=== PATIENT | male | born 1990 | race Caucasian/White ===

== ENCOUNTER 2022-01-20 15:51 | Emergency (ER) | payer MEDICAID ==
[~2022-01-20] VITALS: Ht 185.4 cm; Wt 116.6 kg
[2022-01-20 16:17] VITALS: BP 135/92
--- NOTE | 2022-01-20 17:25 | NUR ---
LAB AT BEDSIDE
--- NOTE | 2022-01-20 17:31 | NUR ---
PT TAKEN TO CT VIA WHEELCHAIR
[2022-01-20 17:37] LABS: BASOPHILS # (AUTO) 0.1 K/uL (0.00-0.22); BASOPHILS % (AUTO) 0.7 % (0.0-2.0); EOSINOPHILS # (AUTO) 0.4 K/uL (0-0.4); EOSINOPHILS % (AUTO) 4.7 % (0.0-4.0); HEMATOCRIT 52.1 % (36-52); HEMOGLOBIN 17.8 g/dL (12.0-18.0); MEAN CORPUSCULAR HEMOGLOBIN 30 pg (27-31); MEAN CORPUSCULAR HGB CONC 34 g/dL (33-37); MONOCYTES # (AUTO) 0.7 K/uL (0.8-1.0); MONOCYTES % (AUTO) 7.7 % (1.7-9.3); NEUTROPHILS # (AUTO) 5.1 K/uL (1.8-7.7); NEUTROPHILS % (AUTO) 54.9 % (42.2-75.2); PLATELET COUNT (AUTO) 242 K/uL (140-450); RED BLOOD CELL COUNT(AUTO) 5.92 MIL/uL (4.20-6.10); WHITE BLOOD COUNT (AUTO) 9.2 K/uL (4.8-10.8)
--- NOTE | 2022-01-20 17:40 | NUR ---
PT RETURNED FROM CT VIA WHEELCHAIR
[2022-01-20 17:49] LABS: ALBUMIN 3.8 g/dL (3.4-5.0); ANION GAP 10.4 (8-16); CARBON DIOXIDE 29.2 mmol/L (21-32); CREATININE 1.1 mg/dL (0.6-1.3); POTASSIUM 4.6 mmol/L (3.5-5.1); TOTAL BILIRUBIN 0.4 mg/dL (0.0-1.0)
[2022-01-20] MEDS ORDERED: NAPR-54 PO (18:19)
[2022-01-20] MEDS ORDERED: DIAZ5TAB6 PO (18:19)
--- NOTE | 2022-01-20 18:35 | NUR ---
Patient discharged with v/s stable. Written and verbal after care instructions FOR GENERAL HEADACHE given and explained. Patient alert, oriented and verbalized understanding of instructions. Ambulatory with steady gait. All questions addressed prior to discharge. ID band removed. Patient advised to follow up with PMD. Rx of DIAZEPAM AND NAPROXEN given. Opportunity to ask questions provided and answered.
--- NOTE | 2022-01-20 18:36 | NUR ---
The patient's care was reviewed and supervised by Kaitlynn Bass RN.
== END 2022-01-20 18:35 | disposition home or self-care (01) ==
LOC: MED 15:51
DX: R51.9 Headache, unspecified (principal); R53.83 Other fatigue; R20.2 Paresthesia of skin; F12.90 Cannabis use, unspecified, uncomplicated; Z90.49 Acquired absence of other specified parts of digestive tract; Z79.899 Other long term (current) drug therapy; Z79.1 Long term (current) use of non-steroidal anti-inflammatories (NSAID)
CPT/HCPCS: 36415; 70450; 71045; 80053; 85025; 99285

== ENCOUNTER 2023-08-18 13:39 | Emergency (ER) | payer MEDICAID ==
[~2023-08-18] VITALS: Ht 185.4 cm; Wt 111.1 kg
[~2023-08-18 13:39] MED LIST: DIAZ5TAB6 PO; NAPR-54 PO
[2023-08-18 14:27] VITALS: BP 139/81; PULSE 96; RESP 18; TEMP 98.5; O2SAT 97
[2023-08-18] MEDS: ACETAMINOPHEN 325 MG TAB PO ONE (16:25)
[2023-08-18 16:42] LABS: BASOPHILS # (AUTO) 0.1 K/uL (0.00-0.22); BASOPHILS % (AUTO) 0.6 % (0.0-2.0); EOSINOPHILS # (AUTO) 0.4 K/uL (0-0.4); EOSINOPHILS % (AUTO) 4.1 % (0.0-4.0); HEMATOCRIT 53.6 % (36-52); HEMOGLOBIN 18.4 g/dL (12.0-18.0); LYMPHOCYTES # (AUTO) 2.8 K/uL (2.0-11.5); MEAN CORPUSCULAR HEMOGLOBIN 30 pg (27-31); MEAN CORPUSCULAR HGB CONC 34 g/dL (33-37); MEAN CORPUSCULAR VOLUME 88.4 fL (80-94); MONOCYTES # (AUTO) 0.8 K/uL (0.8-1.0); NEUTROPHILS # (AUTO) 4.8 K/uL (1.8-7.7); NEUTROPHILS % (AUTO) 54.3 % (42.2-75.2); PLATELET COUNT (AUTO) 231 K/uL (140-450); RED BLOOD CELL COUNT(AUTO) 6.07 MIL/uL (4.20-6.10); RED CELL DISTRIBUTION WIDTH 13.2 % (11.6-13.7); WHITE BLOOD COUNT (AUTO) 8.8 K/uL (4.8-10.8)
[2023-08-18 16:51] LABS: ANION GAP 11.8 (8-16); CALCIUM 9.9 mg/dL (8.5-10.1); CARBON DIOXIDE 30.9 mmol/L (21-32); CREATININE 1.1 mg/dL (0.6-1.3); POTASSIUM 4.7 mmol/L (3.5-5.1)
[2023-08-18 17:04] LABS: ALANINE AMINOTRANSFERASE 66 U/L (12-78); ALKALINE PHOSPHATASE 59 U/L (50-136); ASPARTATE AMINOTRANSFERASE 32 U/L (15-37); BILIRUBIN,DIRECT 0.2 mg/dL (0.0-0.3); TOTAL BILIRUBIN 0.9 mg/dL (0.0-1.0); TOTAL PROTEIN, SERUM 7.8 g/dL (6.4-8.2)
[2023-08-18 17:06] LABS: FREE T4 (FREE THYROXINE) 1.05 ng/dL (0.76-1.46); THYROID STIMULATING HORMONE 1.69 uIU/mL (0.34-3.74)
[2023-08-18] MEDS ORDERED: KETOROLAC 30 MG/ML VIAL ONE (17:41)
[2023-08-18] MEDS ORDERED: ACETAMINOPHEN 325 MG TAB ONE (17:41)
[2023-08-18] MEDS: KETOROLAC 30 MG/ML VIAL IM ONE (17:43)
[2023-08-18] MEDS ORDERED: IBUP-2213 PO (18:20)
[2023-08-18 18:29] VITALS: BP 139/81; PULSE 96; RESP 18; TEMP 98.5; O2SAT 97
== END 2023-08-18 18:29 | disposition home or self-care (01) ==
LOC: MED 13:39
DX: R51.9 Headache, unspecified (principal); R07.9 Chest pain, unspecified; R53.1 Weakness; R42 Dizziness and giddiness; Z79.899 Other long term (current) drug therapy; Z79.1 Long term (current) use of non-steroidal anti-inflammatories (NSAID)
CPT/HCPCS: 36415; 71045; 80048; 80076; 84439; 84443; 84484; 85025; 93005; 96372; 99285; J1885; Q0092

== ENCOUNTER 2024-02-28 17:30 | Emergency (ER) | payer MEDICAID ==
[~2024-02-28] VITALS: Ht 185.4 cm; Wt 85.3 kg
[~2024-02-28 17:30] MED LIST changes: +IBUP-2213 PO; +NAPR-337 PO; -NAPR-54 PO
[2024-02-28 17:37] VITALS: BP 146/88; PULSE 60; RESP 16; TEMP 98.7; O2SAT 99
[2024-02-28] MEDS ORDERED: PRED20TA5 PO (18:12)
[2024-02-28] MEDS ORDERED: IBUP-2213 PO (18:13)
[2024-02-28 18:40] VITALS: BP 119/72; PULSE 54; RESP 14; TEMP 98.7; O2SAT 99
== END 2024-02-28 18:40 | disposition home or self-care (01) ==
LOC: MED 17:30
DX: G51.0 Bell's palsy (principal); R51.9 Headache, unspecified; Z90.49 Acquired absence of other specified parts of digestive tract; Z98.890 Other specified postprocedural states; Z79.899 Other long term (current) drug therapy
CPT/HCPCS: 82948; 99283

== ENCOUNTER 2024-04-24 22:27 | Emergency (ER) | payer MEDICAID ==
[~2024-04-24] VITALS: Ht 185.4 cm; Wt 83.9 kg
[~2024-04-24 22:27] MED LIST changes: +PRED20TA5 PO
[2024-04-24 22:35] VITALS: BP 134/88; PULSE 50; RESP 18; TEMP 97; O2SAT 99
[2024-04-24 23:40] LABS: BASOPHILS # (AUTO) 0.1 K/uL (0.00-0.22); EOSINOPHILS # (AUTO) 0.4 K/uL (0-0.4); HEMATOCRIT 39.4 % (36-52); HEMOGLOBIN 13.5 g/dL (12.0-18.0); LYMPHOCYTES # (AUTO) 2.9 K/uL (2.0-11.5); LYMPHOCYTES % (AUTO) 39.4 % (20.5-51.1); MEAN CORPUSCULAR HEMOGLOBIN 30 pg (27-31); MEAN CORPUSCULAR HGB CONC 34 g/dL (33-37); MEAN CORPUSCULAR VOLUME 86.3 fL (80-94); MONOCYTES # (AUTO) 0.6 K/uL (0.8-1.0); MONOCYTES % (AUTO) 7.7 % (1.7-9.3); NEUTROPHILS # (AUTO) 3.4 K/uL (1.8-7.7); NEUTROPHILS % (AUTO) 45.9 % (42.2-75.2); PLATELET COUNT (AUTO) 160 K/uL (140-450); RED BLOOD CELL COUNT(AUTO) 4.57 MIL/uL (4.20-6.10); RED CELL DISTRIBUTION WIDTH 13.8 % (11.6-13.7); WHITE BLOOD COUNT (AUTO) 7.4 K/uL (4.8-10.8)
[2024-04-24] MEDS ORDERED: DICYCLOMINE HCL LIQUID 10 MG/5 ML UDC ONE (23:44)
[2024-04-24] MEDS ORDERED: ALUMINUM HYD/MAG/SIMETHICONE 30 ML UDC ONE (23:44)
[2024-04-24] MEDS: DICYCLOMINE HCL LIQUID 20 MG, ALUMINUM HYD/MAG/SIMETHICONE 30 ML, LIDOCAINE VISCOUS 2% ... PO ONE (23:48)
[2024-04-24 23:55] LABS: ANION GAP 13.8 (8-16); CALCIUM 9.4 mg/dL (8.5-10.1); CARBON DIOXIDE 26.9 mmol/L (21-32); CREATININE 0.9 mg/dL (0.6-1.3); POTASSIUM 3.7 mmol/L (3.5-5.1); TOTAL PROTEIN, SERUM 7.1 g/dL (6.4-8.2)
[2024-04-25 00:07] LABS: APPEARANCE,URINE CLEAR (CLEAR); BILIRUBIN,URINE 1+ (NEGATIVE); BLOOD, URINE NEGATIVE (NEGATIVE); COLOR,URINE YELLOW (YELLOW); LEUKOCYTE ESTERASE ,URINE NEGATIVE (NEGATIVE); NITRITE, URINE NEGATIVE (NEGATIVE); PROTEIN,URINE NEGATIVE (NEGATIVE); UGLUCOSE NEGATIVE (NEGATIVE)
[2024-04-25 00:08] LABS: ICTOTEST POSITIVE (NEGATIVE)
[2024-04-25 00:09] LABS: TOTAL BILIRUBIN 0.8 mg/dL (0.0-1.0)
[2024-04-25] MEDS ORDERED: MAG355OR2 PO (00:52)
[2024-04-25] MEDS ORDERED: OMEP20EC11 PO (00:52)
[2024-04-25 01:05] VITALS: BP 125/79; PULSE 49; RESP 18; TEMP 97.7; O2SAT 97
== END 2024-04-25 01:05 | disposition home or self-care (01) ==
LOC: MED 22:27
DX: K29.70 Gastritis, unspecified, without bleeding (principal); Z79.1 Long term (current) use of non-steroidal anti-inflammatories (NSAID); Z79.899 Other long term (current) drug therapy
CPT/HCPCS: 36415; 80053; 81003; 83690; 85025; 99283

== ENCOUNTER 2024-05-06 22:29 | Emergency (ER) | payer MEDICAID ==
[~2024-05-06] VITALS: Ht 185.4 cm; Wt 85.3 kg
[~2024-05-06 22:29] MED LIST changes: +MAG355OR2 PO; +OMEP20EC11 PO
[2024-05-06 22:45] VITALS: BP 134/71; PULSE 62; RESP 18; TEMP 98.1; O2SAT 98
== END 2024-05-07 01:49 | disposition left against medical advice (07) ==
LOC: MED 22:29
DX: S16.1XXA Strain of muscle, fascia and tendon at neck level, initial encounter (principal); M54.6 Pain in thoracic spine; R51.9 Headache, unspecified; Z79.899 Other long term (current) drug therapy; X58.XXXA Exposure to other specified factors, initial encounter; Y92.89 Other specified places as the place of occurrence of the external cause; Y93.89 Activity, other specified; Y99.8 Other external cause status
CPT/HCPCS: 99281